=== PATIENT | male | born 1990 | race Caucasian/White ===

== ENCOUNTER 2018-04-27 17:07 | Emergency (ER) | payer OTHER ==
[~2018-04-27] VITALS: Ht 182.9 cm; Wt 90.7 kg
--- NOTE | 2018-04-27 17:07 | NUR ---
PT BIBRA FROM A SIDEWALK FOR BIZARRE BEHAVIOR FOR POSSIBLE ETOH. PT VERBAL, YELLING INCOHERENTLY, RESPIRATIONS EVEN AND UNLABORED, NO SOB, PT ON MONITOR, NAD NOTED, VSS, PENDING ER PROVIDER CHRISAL
[2018-04-27] MEDS ORDERED: HALOPERIDOL LACTATE INJ 5 MG/ML VIAL ONE (17:13)
[2018-04-27] MEDS ORDERED: HALOPERIDOL LACTATE INJ 5 MG/ML VIAL IM ONE (17:30)
[2018-04-27 23:00] VITALS: BP 121/65
--- NOTE | 2018-04-27 23:10 | NUR ---
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 PT AMBULATED TO THE BATHROOM WITH STEADY GAIT. GIVEN CLOTHES AND BELONGINGS. PER PT, HE WILL WAIT FOR FRIEND IN THE WAITING ROOM. BLANKET AND D/C PAPERWORK GIVEN TO PT.
--- NOTE | 2018-04-27 23:37 | NUR ---
Patient discharged to home in stable condition. Written and verbal after care instructions given. Patient verbalizes understanding of instruction.
== END 2018-04-27 23:27 | disposition home or self-care (01) ==
LOC: ER 17:09
DX: F10.129 Alcohol abuse with intoxication, unspecified (principal); R51 Headache; R45.1 Restlessness and agitation; Z60.2 Problems related to living alone; Y90.9 Presence of alcohol in blood, level not specified
CPT/HCPCS: 70450-TC; 70486-TC; 72125-TC; J1630